=== PATIENT | male | born 1980 | race African-American/Black ===

== ENCOUNTER 2024-01-06 16:55 | Emergency (ER) | payer MEDICAID, OTHER ==
[~2024-01-06] VITALS: Ht 170.2 cm; Wt 78.0 kg
[2024-01-06 16:56] VITALS: BP 102/60; PULSE 86; RESP 16; O2SAT 97
[2024-01-06 18:14] LABS: BASOPHILS % 1.3 % (0.0-2.0); DIFFERENTIAL COMMENT 0; EOSINOPHILS % 0.7 % (0.0-5.0); MEAN CORPUSCULAR HEMOGLOBIN 33.2 pg (28.0-32.0); MEAN CORPUSCULAR HGB CONC 34.1 g/dL (31.0-37.0); MEAN CORPUSCULAR VOLUME 97.4 fL (80.0-94.0); MEAN PLATELET VOLUME 9.7 fl (7.4-10.4); MONOCYTES % 8.1 % (2.0-8.0); NEUTROPHILS % 61.9 % (40.0-76.0); PLATELET 213 x1000/uL (130-400); RED BLOOD CELL COUNT 4.52 mill/uL (4.7-6.1); RED CELL DISTRIBUTION WIDTH 12.8 % (11.6-14.6); WHITE BLOOD COUNT 5.2 x1000/uL (4.5-11.0)
[2024-01-06 18:18] LABS: CHLORIDE 103 mEq/L (98-107); POTASSIUM 3.6 mEq/L (3.5-5.1); SODIUM 138 mEq/L (136-145)
[2024-01-06 18:19] LABS: CALCIUM 10.4 mg/dL (8.7-10.4); CARBON DIOXIDE 25 mEq/L (21-32)
[2024-01-06 18:24] LABS: CREATININE 1.1 mg/dL (0.6-1.3); GLUCOSE 89 mg/dL (70-105); UREA NITROGEN BLOOD 11 mg/dL (9-23)
[2024-01-06 18:31] LABS: TROPONIN I HIGH SENSITIVITY < 4 ng/L (3.0-53)
[2024-01-06] MEDS ORDERED: MAG355OR21 MT (18:56)
[2024-01-06] MEDS ORDERED: PROT20 MT (18:56)
[2024-01-06] MEDS ORDERED: TOPUD MT (18:56)
[2024-01-06] MEDS ORDERED: PANTOPRAZOLE 40MG DR TABLET PO ONE (19:00)
[2024-01-06] MEDS ORDERED: MAGNESIUM/ALUMINUM HYDROXIDE/SIMETHICONE 30ML UDC PO ONE (19:00)
[2024-01-06] MEDS ORDERED: ACETAMINOPHEN 325MG TABLET PO ONE (19:00)
[2024-01-06] MEDS: MAGNESIUM/ALUMINUM HYDROXIDE/SIMETHICONE 30ML UDC PO NR (21:13)
[2024-01-06 21:15] VITALS: TEMP 98.3
[2024-01-06] MEDS: METOCLOPRAMIDE HCL 5MG TABLET PO ONE (21:15)
[2024-01-06] MEDS: PANTOPRAZOLE 40MG DR TABLET PO NR (21:15)
[2024-01-06] MEDS: ACETAMINOPHEN 325MG TABLET PO NR (21:15)
== END 2024-01-06 21:31 | disposition home or self-care (01) ==
LOC: ER 16:55
DX: K21.9 Gastro-esophageal reflux disease without esophagitis (principal); Z98.890 Other specified postprocedural states; Z90.49 Acquired absence of other specified parts of digestive tract
CPT/HCPCS: 99285; 71045; 80048; 85025; 84484; 36415; 93005; J8597

== ENCOUNTER 2024-01-12 00:13 | Emergency (ER) | payer SELFPAY ==
[~2024-01-12] VITALS: Ht 170.2 cm; Wt 78.0 kg
[~2024-01-12 00:13] MED LIST: MAG355OR21 MT; PROT20 MT; TOPUD MT
[2024-01-12 00:29] VITALS: O2SAT 100
[2024-01-12] MEDS: METOCLOPRAMIDE HCL 5MG TABLET PO ONE (01:45)
[2024-01-12 02:02] LABS: BASOPHILS % 2.1 % (0.0-2.0); EOSINOPHILS % 1.3 % (0.0-5.0); HEMATOCRIT. 41.5 % (42.0-52.0); HEMOGLOBIN. 13.7 g/dL (14.0-18.0); LYMPHOCYTES % 36.7 % (20.0-50.0); MEAN CORPUSCULAR HEMOGLOBIN 32.3 pg (28.0-32.0); MEAN CORPUSCULAR HGB CONC 33.1 g/dL (31.0-37.0); MEAN CORPUSCULAR VOLUME 97.5 fL (80.0-94.0); MEAN PLATELET VOLUME 9.9 fl (7.4-10.4); MONOCYTES % 12.8 % (2.0-8.0); NEUTROPHILS % 47.1 % (40.0-76.0); PLATELET 201 x1000/uL (130-400); RED BLOOD CELL COUNT 4.26 mill/uL (4.7-6.1); RED CELL DISTRIBUTION WIDTH 12.6 % (11.6-14.6); WHITE BLOOD COUNT 5.5 x1000/uL (4.5-11.0)
[2024-01-12 02:03] LABS: DIFFERENTIAL COMMENT 1
[2024-01-12 02:04] LABS: CHLORIDE 107 mEq/L (98-107); POTASSIUM 3.9 mEq/L (3.5-5.1); SODIUM 140 mEq/L (136-145)
[2024-01-12 02:05] LABS: CALCIUM 9.8 mg/dL (8.7-10.4); CARBON DIOXIDE 30 mEq/L (21-32)
[2024-01-12 02:10] LABS: CREATININE 1.2 mg/dL (0.6-1.3); GLUCOSE 96 mg/dL (70-105); UREA NITROGEN BLOOD 10 mg/dL (9-23)
[2024-01-12 02:27] LABS: TROPONIN I HIGH SENSITIVITY < 4 ng/L (3.0-53)
[2024-01-12 02:30] VITALS: BP 117/83; PULSE 74; RESP 16; TEMP 36.66960; O2SAT 99
[2024-01-12] MEDS: PANTOPRAZOLE 40MG DR TABLET PO STA (02:43)
[2024-01-12] MEDS: MAGNESIUM/ALUMINUM HYDROXIDE/SIMETHICONE 30ML UDC PO ONE (02:43)
[2024-01-12] MEDS: ACETAMINOPHEN 325MG TABLET PO STA (02:43)
== END 2024-01-12 04:40 | disposition home or self-care (01) ==
LOC: ER 00:13
DX: K21.9 Gastro-esophageal reflux disease without esophagitis (principal); Z79.899 Other long term (current) drug therapy
CPT/HCPCS: 36415; 80048; 84484; 85025; 93005; 99284; J8597